=== PATIENT | female | born 1945 | race Caucasian/White ===

== ENCOUNTER 2021-09-27 16:40 | Inpatient (IN) | payer OTHER, MEDICAID ==
[~2021-09-27] VITALS: Ht 160 cm; Wt 75.7 kg
[2021-09-27 16:50] VITALS: BP_SYST 140
--- NOTE | 2021-09-27 16:55 | NUR ---
Patient to ER bed 3 to gown for evaluation. Side rails up. Report given to ANIA JOHNSON.
--- NOTE | 2021-09-27 17:12 | NUR ---
PT STATED HER CAR IS AT [facility] [place] [facility] [place] @ [address] [facility], [address] [place] [address] @ [phone]
--- NOTE | 2021-09-27 17:13 | NUR ---
ER AT BEDSIDE
--- NOTE | 2021-09-27 17:45 | NUR ---
PT AMBULATED TO RESTROOM WITH STEADY GAIT
[2021-09-27 17:58] LABS: ANION GAP 7 (5-15); CALCIUM 9.2 mg/dL (8.4-11.0); CHLORIDE 104 mmol/L (98-107); CREATININE 0.98 mg/dL (0.55-1.30); GLUCOSE 106 mg/dL (70-99); POTASSIUM 3.8 mmol/L (3.5-5.1); SODIUM SERUM 139 mmol/L (136-145); UREA NITROGEN, BLOOD 19 mg/dL (8-21)
[2021-09-27 18:06] LABS: ALANINE AMINOTRANSFERASE 17 U/L (12-78); ASPARTATE AMINOTRANSFERASE 27 U/L (10-37); TOTAL BILIRUBIN 0.4 mg/dL (0.0-1.0)
--- NOTE | 2021-09-27 18:21 | NUR ---
COVID SENT AT THIS TIME
[2021-09-27 18:53] LABS: BASOPHILS # (AUTO) 0.1 K/uL (0.0-0.2); BASOPHILS % (AUTO) 1.1 % (0.0-2.0); EOSINOPHILS # (AUTO) 0.2 K/uL (0.0-0.4); EOSINOPHILS % (AUTO) 1.8 % (0.0-4.0); HEMATOCRIT 39.2 % (36-48); HEMOGLOBIN 12.6 g/dL (12.0-16.0); LYMPHOCYTES # (AUTO) 1.4 K/uL (1.0-5.5); LYMPHOCYTES % (AUTO) 16.4 % (20.5-51.5); MEAN CORPUSCULAR HEMOGLOBIN 27 pg (27-31); MEAN CORPUSCULAR HGB CONC 32 % (32-36); MEAN CORPUSCULAR VOLUME 83 fL (79.0-98.0); MONOCYTES # (AUTO) 0.6 K/uL (0.0-1.0); MONOCYTES % (AUTO) 6.9 % (1.7-9.3); NEUTROPHILS # (AUTO) 6.2 K/uL (1.8-7.7); NEUTROPHILS % (AUTO) 73.8 % (40.0-70.0); PLATELET COUNT (AUTO) 188 K/uL (130-430); RED BLOOD CELL COUNT(AUTO) 4.75 MIL/uL (4.2-6.2); WHITE BLOOD COUNT (AUTO) 8.4 K/uL (4.8-10.8)
[2021-09-27] MEDS ORDERED: iohexoL 350 mgI/mL, 100 ML INFUS..BTL IV ONE (18:54)
--- NOTE | 2021-09-27 19:00 | NUR ---
PT OFF TO CT AT THIS TIME
[2021-09-27] MEDS ORDERED: ASPIRIN 325 MG TABLET (ECOTRIN) PO ONE ×2 (20:30→22:20)
[2021-09-27] MEDS ORDERED: ENOXAPARIN SODIUM 80 MG/0.8 ML SYRINGE SUBCUT ONE (20:30)
[2021-09-27] MEDS ORDERED: NITROGLYCERIN 1 INCH (GM) OINT. TP ONE (20:30)
--- NOTE | 2021-09-27 21:01 | NUR ---
Notified Dr. Box of patient's trending o2 sats on Room Air and while on 4 liters nasal cannula. Also checked 3 different fingers with o2 sat oximeter probe and also changed out the actual line to make sure erroneous results are not being displayed. Patient denies feeling sob, denies chest pain, denies dizziness. Asymptomatic. No visible signs of respiratory distress. No new orders received from ER physician.
[2021-09-27] MEDS ORDERED: FUROSEMIDE 40 MG/4 ML VIAL IVP ONE (21:15)
--- NOTE | 2021-09-27 21:39 | NUR ---
Spoke with Admitting physician Jose. Notified him of patient's o2 sat trends. Instructed to admit patient to icu instead of telemetry. supervisor pipelines Clover' and charge nurse of ER notified. Awaiting icu room. RT paged at this time for ABG and evaluation.
--- NOTE | 2021-09-27 21:48 | NUR ---
Admit bed requested Patient will be admitted to care of [TERRELL]. Admitted to [ICU] unit. Diagnosis [ELEVATED TROPONIN] Inpatient (Yes or No) [YES] Observation (Yes or No) [NO] Orientation concerns or request close to nursing station (Yes or No) [NO] Covid Status [NEG] On vent or bipap [NO] Isolation requirements [NO] Needs a sitter [NO] From Home (Yes or if No enter name of facility) [YES] Requires Dialysis (Yes or No) [NO] Med Rec Completed (Yes of No) [NO]
--- NOTE | 2021-09-27 22:20 | NUR ---
Telephone report given at this time to ELIZABETH Murray. Instructed to hold off on bringing patient to icu for at least 15 to 20 minutes.
--- NOTE | 2021-09-27 22:40 | NUR ---
Patient will be admitted to care of Dr. Garcia . Admitted to ICU unit. Will go to room ICU bed 5 . Belongings list completed. Complete and up to date summary report printed. SBAR report given at bedside with opportunity for questions.
--- NOTE | 2021-09-27 22:45 | NUR ---
RECEIVED PATIENT FROM ER, NANCY RN GAVE ME REPORT OVER THE PHONE. PATIENT IS A&O X4, ON 15 L VENTRI MASK WITH STATS AT 98%. PATIENT HAS A L AC 20 G WITH NOTHING RUNNING AT THIS TIME. PATIENT HAS A RIGHT LEG WOUND FROM A PAST DVT. HX WAS SHE WENT TO HER [facility] TODAY FOR A DEBRIDEMENT AND HER 02 STATS WHERE IN THE 80%. PATIENT STATS NO PAIN, SOB, CHEST PAIN, OR ANXIETY. PATIENT IS ON A CARDIAC DIET AND IS ABLE TO EAT AND DRINK HERSELF. INITIAL VITALS TO ICU WERE BP 134/83, TEMP 97.6, O2 98%, RESP 32. BED AT THE LOWEST LEVEL, BRAKES ARE LOCKED, 2 SIDE RAILS UP, AND CALL LIGHT WITHIN REACH.
[2021-09-27 23:00] VITALS: BP_SYST 134
[2021-09-27 23:01] VITALS: BP_SYST 134
[2021-09-27] MEDS ORDERED: cefTRIAXone 1 GM VIAL ONE (23:02)
[2021-09-27] MEDS ORDERED: AZITHROMYCIN 500 MG/VIAL (ZITHROMAX) IV ONE (23:03)
[2021-09-27] MEDS: cefTRIAXone 1 GM IVPB PREMIX 50 ML IV SCH ×3 (23:36→23:58)
--- NOTE | 2021-09-27 23:55 | NUR ---
LAB CALLED WITH A CRITICAL LAB OF TROPONIN 95. SAWYER TOOK CALL.
[2021-09-28] VITALS (24 sets, daily range): BP systolic 115–162
--- NOTE | 2021-09-28 00:07 | NUR ---
CALL DR TEJADA TO INFORMED OF CRITICAL LAB
--- NOTE | 2021-09-28 00:15 | NUR ---
DR TEJADA CALLED AND WAS MADE AWARE OF CRITICAL LAB. NO NEW ORDERS WERE GIVEN.
[2021-09-28] MEDS: AZITHROMYCIN 500 MG in NS 250 ML IV SCH ×2 (00:46→21:13)
--- NOTE | 2021-09-28 02:25 | NUR ---
DR VÍCTOR Box called stating pt was having mild carbon monoxide symptoms, and wanted pt on 100% FiO2. Pt placed on NRB 100%%. Order placed by Dr Box.
[2021-09-28 06:14] LABS: BASOPHILS # (AUTO) 0.1 K/uL (0.0-0.2); BASOPHILS % (AUTO) 0.7 % (0.0-2.0); EOSINOPHILS # (AUTO) 0.2 K/uL (0.0-0.4); EOSINOPHILS % (AUTO) 2.1 % (0.0-4.0); HEMATOCRIT 37.1 % (36-48); HEMOGLOBIN 12.3 g/dL (12.0-16.0); LYMPHOCYTES # (AUTO) 1.6 K/uL (1.0-5.5); LYMPHOCYTES % (AUTO) 17.7 % (20.5-51.5); MEAN CORPUSCULAR HEMOGLOBIN 27 pg (27-31); MEAN CORPUSCULAR HGB CONC 33 % (32-36); MEAN CORPUSCULAR VOLUME 82 fL (79.0-98.0); MONOCYTES # (AUTO) 0.8 K/uL (0.0-1.0); MONOCYTES % (AUTO) 8.2 % (1.7-9.3); NEUTROPHILS # (AUTO) 6.6 K/uL (1.8-7.7); NEUTROPHILS % (AUTO) 71.3 % (40.0-70.0); PLATELET COUNT (AUTO) 180 K/uL (130-430); RED BLOOD CELL COUNT(AUTO) 4.55 MIL/uL (4.2-6.2); RED CELL DISTRIBUTION WIDTH 14.3 % (9.0-15.0); WHITE BLOOD COUNT (AUTO) 9.3 K/uL (4.8-10.8)
[2021-09-28 07:16] LABS: ANION GAP 8 (5-15); CALCIUM 8.5 mg/dL (8.4-11.0); CHLORIDE 104 mmol/L (98-107); CREATININE 0.98 mg/dL (0.55-1.30); GLUCOSE 107 mg/dL (70-99); POTASSIUM 3.5 mmol/L (3.5-5.1); SODIUM SERUM 139 mmol/L (136-145); UREA NITROGEN, BLOOD 14 mg/dL (8-21)
[2021-09-28 07:17] LABS: ALANINE AMINOTRANSFERASE 7 U/L (12-78); ALBUMIN 2.6 g/dL (3.4-4.8); ASPARTATE AMINOTRANSFERASE 25 U/L (10-37); TOTAL BILIRUBIN 0.4 mg/dL (0.0-1.0)
--- NOTE | 2021-09-28 08:34 | NUR ---
RT NOTES Titrated O2 to 6L oxymizer. Pt. is alert, re-educated on deep- breathing exercise.
--- NOTE | 2021-09-28 11:01 | NUR ---
NOTIFIED OF CONSULT ORDERING PHY: REASON FOR CONSULT: ELEVATED TROP DIALED: [phone] SPOKE TO: JANE
--- NOTE | 2021-09-28 11:16 | NUR ---
NOTIFIED OF CONSULT ORDERING PHY: REASON FOR CONSULT: SOB DIALED: [phone] SPOKE TO: ABILIO
[2021-09-28] MEDS: DEXAMETHASONE SOD PHOSPHATE 10 MG/ML VIAL IVP SCH (13:41)
[2021-09-28] MEDS: EXCEDRIN EXTRA STRENGTH PO PRN (15:28)
--- NOTE | 2021-09-28 17:52 | NUR ---
JOHNSON CATH: # 16 FR Johnson catheter with 10 cc bulb inserted with use of sterile technique. Bulb inflated with 10 cc sterile water. Immediate return of YELLOW urine noted. Bedside drainage bag placed below level of bladder. Pt tolerated procedure.
--- NOTE | 2021-09-28 19:10 | NUR ---
OPENING NOTES: RECEIVED BEDSIDE REPORT FROM ADOLFO. PATIENT IS A&O X4 BUT HAS PERIODS OF CONFUSION. JOHNSON CATHETER WAS INSERTED TODAY. PATIENT IS ON A NON REBREATHER MASK AT 12L AND STATING AT 9%. PATIENT HAS A NITRO PATCH ON LEFT CLAVICLE AREA. ON A 2G SODIUM DIET, ABLE TO EAT AND DRINK ON HER OWN. RIGHT LOWER LEG WOUND FROM PAST DVT SURGERY. LEFT AC WITH NO FLUIDS RUNNING. BED AT THE LOWEST LEVEL, BRAKES ARE LOCKED, SUCTION IS WORKING, 3 SIDE RAILS UP, AND CALL LIGHT WITHIN REACH.
[2021-09-28] MEDS: cefTRIAXone 1 GM IVPB PREMIX 50 ML IV SCH (20:07)
[2021-09-29] VITALS (24 sets, daily range): BP systolic 108–161
[2021-09-29 02:25] LABS: BILIRUBIN,URINE NEGATIVE (NEGATIVE); BLOOD, URINE 3+ (NEGATIVE); CLARITY/URINE CLEAR (CLEAR); COLOR,URINE YELLOW (YELLOW); GLUCOSE,URINE NEGATIVE (NEGATIVE); KETONES,URINE NEGATIVE (NEGATIVE); LEUKOCYTE ESTERASE ,URINE NEGATIVE (NEGATIVE); NITRITE, URINE NEGATIVE (NEGATIVE); PROTEIN URINE 2+ (NEGATIVE); UROBILINOGEN,URINE 0.2 (0.2-1.0)
[2021-09-29 03:41] LABS: RBC,URINE 20-50 /HPF (0-3)
[2021-09-29 03:42] LABS: BACTERIA,URINE None Seen /HPF (None Seen); MUCUS,URINE None Seen /LPF (None Seen); WBC,URINE 0-3 /HPF (0-3)
[2021-09-29 06:40] LABS: ANION GAP 7 (5-15); CALCIUM 8.6 mg/dL (8.4-11.0); CHLORIDE 103 mmol/L (98-107); CREATININE 0.87 mg/dL (0.55-1.30); GLUCOSE 123 mg/dL (70-99); SODIUM SERUM 137 mmol/L (136-145); UREA NITROGEN, BLOOD 17 mg/dL (8-21)
[2021-09-29 06:44] LABS: HEMATOCRIT 36.6 % (36-48); HEMOGLOBIN 11.9 g/dL (12.0-16.0); LYMPHOCYTES # (AUTO) 1.1 K/uL (1.0-5.5); LYMPHOCYTES % (AUTO) 12.1 % (20.5-51.5); MEAN CORPUSCULAR HEMOGLOBIN 27 pg (27-31); MEAN CORPUSCULAR HGB CONC 33 % (32-36); MEAN CORPUSCULAR VOLUME 83 fL (79.0-98.0); MONOCYTES # (AUTO) 0.6 K/uL (0.0-1.0); MONOCYTES % (AUTO) 6.1 % (1.7-9.3); NEUTROPHILS # (AUTO) 7.7 K/uL (1.8-7.7); NEUTROPHILS % (AUTO) 81.8 % (40.0-70.0); PLATELET COUNT (AUTO) 182 K/uL (130-430); RED BLOOD CELL COUNT(AUTO) 4.44 MIL/uL (4.2-6.2); RED CELL DISTRIBUTION WIDTH 14.5 % (9.0-15.0); WHITE BLOOD COUNT (AUTO) 9.4 K/uL (4.8-10.8)
[2021-09-29] MEDS: ENOXAPARIN SODIUM 40 MG/0.4 ML SYRINGE SUBCUT SCH (08:31)
[2021-09-29] MEDS: FUROSEMIDE 40 MG/4 ML VIAL IVP SCH (08:31)
[2021-09-29] MEDS: CLOPIDOGREL BISULFATE 75 MG TABLET PO SCH (08:31)
--- NOTE | 2021-09-29 10:55 | NUR ---
RT NOTES Set up HFNC per Dr Kaur's order, 30L 60%. Pt is about to go to CT. ELIZABETH Linda is to place pt on HFNC once back from CT.
[2021-09-29] MEDS: DEXAMETHASONE SOD PHOSPHATE 10 MG/ML VIAL IVP SCH (12:39)
[2021-09-29] MEDS ORDERED: methylPREDNISolone SOD SUCC/PF 62.5 MG/ML VIAL IVP ONE (16:00)
--- NOTE | 2021-09-29 19:05 | NUR ---
OPENING NOTES: RECEIVED BEDSIDE REPORT FROM SUSAN. PATIENT IS A&O X4 AND IS VERY UPSET. PATIENT IS ON HIGH FLOW AT 30L AND 60% STATING AT 99%. PATIENT HR IS 97. PATIENT HAS A LEFT AC 20G THAT IS SALINE LOCKED. SUSAN STATED SHE CALLED FOR SOME ANTACIDS AND HAS NOT RECEIVED A CALL BACK. PATIENT IS ON A 2G SODIUM DIET, IS ABLE TO EAT AND DRINK ON HER OWN. BED IS AT THE LOWEST LEVEL, BRAKES ARE LOCKED, SUCTION IS WORKING, AND CALL LIGHT IS WITHIN REACH. EDUCATED THE PATIENT NOT TO GET UP AND TO USE THE CALL LIGHT IF SHE NEEDS ANYTHING.
--- NOTE | 2021-09-29 19:59 | NUR ---
CALLED TO PAGE DR TONG. PATIENT HR IS 165 FOR THE PAST 30 MINUTES.
[2021-09-29] MEDS: cefTRIAXone 1 GM IVPB PREMIX 50 ML IV SCH (20:37)
[2021-09-29] MEDS: methylPREDNISolone SOD SUCC/PF 62.5 MG/ML VIAL IVP SCH (20:38)
--- NOTE | 2021-09-29 21:11 | NUR ---
REPAGED DR TONG FOR INCREASED HR. HR DID DECREASE FOR 1 HOUR, DID NOT RECEIVE A CALL BACK FOR FIRST CALL.
[2021-09-29] MEDS: AZITHROMYCIN 500 MG in NS 250 ML IV SCH (21:26)
--- NOTE | 2021-09-29 21:41 | NUR ---
REPAGED DR TONG AGAIN FOR ORDERS. PATIENT HR IS 169.
--- NOTE | 2021-09-29 22:35 | NUR ---
DR RAN Cohen notified regarding pt's rhythm of rapid AFib. Orders received.
[2021-09-29] MEDS ORDERED: AMIODARONE HCL 200 MG TABLET PO ONE (23:00)
[2021-09-30] VITALS (20 sets, daily range): BP systolic 105–148
--- NOTE | 2021-09-30 04:30 | NUR ---
CALLED DR TONG FOR ORDERS IN REGARDS TO INCREASED HR. GAVE ORDERS OF ONCE LOPRESSOR 5 MG IVP AND NS 75 CC/HR.
[2021-09-30] MEDS ORDERED: METOPROLOL TARTRATE 5 MG/5 ML AMPUL IVP ONE (04:45)
--- NOTE | 2021-09-30 04:45 | NUR ---
HIGH ALERT NOTE: Called Dr. Cohen back at 0445 identified within the medical roster to verify physician authenticity.
[2021-09-30] MEDS: NACL 0.9% 1,000 ML IV SCH ×2 (04:48→21:07)
[2021-09-30 06:14] LABS: BASOPHILS % (AUTO) 0.2 % (0.0-2.0); HEMATOCRIT 37.1 % (36-48); HEMOGLOBIN 12.1 g/dL (12.0-16.0); LYMPHOCYTES # (AUTO) 0.8 K/uL (1.0-5.5); LYMPHOCYTES % (AUTO) 7.7 % (20.5-51.5); MEAN CORPUSCULAR HEMOGLOBIN 27 pg (27-31); MEAN CORPUSCULAR HGB CONC 33 % (32-36); MEAN CORPUSCULAR VOLUME 82 fL (79.0-98.0); MONOCYTES # (AUTO) 0.1 K/uL (0.0-1.0); NEUTROPHILS # (AUTO) 9.7 K/uL (1.8-7.7); NEUTROPHILS % (AUTO) 91.1 % (40.0-70.0); PLATELET COUNT (AUTO) 228 K/uL (130-430); RED BLOOD CELL COUNT(AUTO) 4.52 MIL/uL (4.2-6.2); RED CELL DISTRIBUTION WIDTH 14.5 % (9.0-15.0); WHITE BLOOD COUNT (AUTO) 10.6 K/uL (4.8-10.8)
[2021-09-30 06:39] LABS: ALANINE AMINOTRANSFERASE 7 U/L (12-78); ALBUMIN 2.5 g/dL (3.4-4.8); ANION GAP 10 (5-15); ASPARTATE AMINOTRANSFERASE 14 U/L (10-37); CHLORIDE 102 mmol/L (98-107); CREATININE 1.06 mg/dL (0.55-1.30); GLUCOSE 211 mg/dL (70-99); POTASSIUM 4.4 mmol/L (3.5-5.1); SODIUM SERUM 137 mmol/L (136-145); THYROID STIMULATING HORMONE 0.54 uIu/mL (0.36-3.74); TOTAL BILIRUBIN 0.4 mg/dL (0.0-1.0); UREA NITROGEN, BLOOD 23 mg/dL (8-21)
--- NOTE | 2021-09-30 07:30 | NUR ---
PATIENT IN BED, A/OX4, ANXIOUS, REINFORCED EDUCATION ON PLAN OF CARE AND CURRENT DIAGNOSIS, HIGH FLOW 30L 60%, ELEVATED HR WITH AFIB, WILL NOTIFY DR TONG UPON ROUNDING, JOHNSON CATHETER DRAINING LOREN URINE TO GRAVITY, MOVES ALL EXTREMITIES, NO BM DURING THE NIGHT, CT CHEST PERFORMED YESTERDAY SHOWING GROUND GLASS, 3 COVID TESTS PERFORMED AND ALL NEGATIVE, 2GM NA+ DIET, CALL LIGHT WITHIN REACH, LEFT AC 20G INTACT PATENT, BED IN LOWEST LOCKED POSITION, SAFETY MEASURES IN PLACE, WILL CONTINUE TO MONITOR.
[2021-09-30 08:43] LABS: CHOLESTEROL 162 mg/dL (<200); HDL CHOLESTEROL 46 mg/dL (>55); LDL CHOLESTEROL 105 mg/dL (<100); TRIGLYCERIDES 57 mg/dL (30-150)
[2021-09-30] MEDS: PANTOPRAZOLE SODIUM 40 MG TAB PO SCH (09:59)
[2021-09-30] MEDS: AMIODARONE HCL 200 MG TABLET PO SCH ×2 (10:00→22:21)
[2021-09-30] MEDS: CLOPIDOGREL BISULFATE 75 MG TABLET PO SCH (10:00)
[2021-09-30] MEDS: LOSARTAN POTASSIUM 50 MG TABLET (COZAAR) PO SCH (10:00)
[2021-09-30] MEDS: FUROSEMIDE 40 MG/4 ML VIAL IVP SCH (10:01)
[2021-09-30] MEDS: methylPREDNISolone SOD SUCC/PF 62.5 MG/ML VIAL IVP SCH ×2 (10:01→22:10)
[2021-09-30] MEDS: ENOXAPARIN SODIUM 40 MG/0.4 ML SYRINGE SUBCUT SCH (10:02)
--- NOTE | 2021-09-30 10:40 | NUR ---
SPOKE WITH DR YI AND DR FRAGA AT NURSES STATION ORDERED TO DOWNGRADE TO TELE SINCE PATIENT IS NOW ON HIGHFLOW 25L FIO2 30% AND PATIENT IS STABLE FOR DOWNGRADE.
[2021-09-30] MEDS: DEXAMETHASONE SOD PHOSPHATE 10 MG/ML VIAL IVP SCH (12:20)
[2021-09-30] MEDS: EXCEDRIN EXTRA STRENGTH PO PRN (14:25)
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
--- NOTE | 2021-09-30 15:06 | NUR ---
ST EVALUATION COMPLETED. ST TX NOT INDICATED AT THIS TIME. RECOMMEND CONTINUE CURRENT PO DIET. MODIFIED BARIUM SWALLOW NOT INDICATED AT THIS TIME. MAY BENEFIT FROM GI CONSULT DUE TO COMPLAINTS OF REFLUX.
--- NOTE | 2021-09-30 15:30 | NUR ---
COLOR REPAIRER LAURIE Garcia received a call from [facility] Hay Baler Jovita requesting support with obtaining patient's correct address and emergency contact. HEALTH CARE FACILITY ADMINISTRATOR obtained the following address from patient and provided it to Jovita- [address] [place] [address] LAURIE also informed Jovita that patient has provided permission for friend Emperatriz Eran to be utilized as emergency contact, but only to be contacted with patient's permission and only in the event of an emergency.
--- NOTE | 2021-09-30 16:20 | NUR ---
PATIENT TRANSFERRED TO TELEMETRY BED 126B, ON 2L NASAL CANULA, O2 SAT 96%, A/OX4, NO S/S OF DISTRESS, ALL BELONGINGS TRANSFERRED WITH PATIENT, PATIENT TOLERATED WELL. FULL REPORT GIVE TO NURSE SASHA, ENDORSED CONTINUATION OF CARE.
--- NOTE | 2021-09-30 16:21 | NUR ---
ADMISSION NOTE Received patient from ICU via hospitalbed. Patient admitted with diagnosis of elevated troponin. Patient is awake, alert, oriented X 4. Patient oriented to hospital room, call light, toileting, pain management and safety-teach back done. Patient currently on 2L NC,oxygen saturation 96%. Call light within reach and safety checks made. All needs met at this time.
--- NOTE | 2021-09-30 16:29 | NUR ---
1611 placed pt on 2l oxymizer for transport to [facility]. pt sat 96%, tolerating well. will cont to monitor. rn aware. Addendum: 09/30/21 at 1634 by Paula Singleton RT Amended: Links added.
--- NOTE | 2021-09-30 19:30 | NUR ---
OPENING Notes: Patient received from AM shift. Patient is AA&Ox4 able to make needs known with call light within reach. Patient was transferred today from the ICU where she was treated for PNA and is now on 2L via NC and is tolerating it well. Patient ambulates with a walker at baseline but has not ambulated since admission and is pending PT eval. Safety measures are currently in place. Will resume care and continue to monitor throughout the shift.
--- NOTE | 2021-09-30 19:33 | NUR ---
CLOSING NOTE Patient resting in bed, alert and oriented x4. No sign of distress and patient denies pain. Patient updated on her plan of care and is oriented to her new room. Patient is on 2L NC, breathing is even and nonlabored. All needs met at this time and safety checks made. Endorsed to overnight associate nurse.
[2021-09-30] MEDS: cefTRIAXone 1 GM IVPB PREMIX 50 ML IV SCH (21:14)
[2021-09-30] MEDS: AZITHROMYCIN 500 MG in NS 250 ML IV SCH (22:12)
[2021-10-01] VITALS: BP_SYST 122
--- NOTE | 2021-10-01 02:00 | NUR ---
Patient PIV dislodged new one was placed on Right hand 20G, patient tolerated well and new IV is patent and is currently infusing NS at 75 ml/hr as ordered. Patient is now resting will continue to monitor throughout the shift.
[2021-10-01 06:37] LABS: BASOPHILS % (AUTO) 0.2 % (0.0-2.0); HEMATOCRIT 35.1 % (36-48); HEMOGLOBIN 11.4 g/dL (12.0-16.0); LYMPHOCYTES # (AUTO) 0.8 K/uL (1.0-5.5); LYMPHOCYTES % (AUTO) 5.1 % (20.5-51.5); MEAN CORPUSCULAR HEMOGLOBIN 27 pg (27-31); MEAN CORPUSCULAR HGB CONC 32 % (32-36); MEAN CORPUSCULAR VOLUME 82 fL (79.0-98.0); MONOCYTES # (AUTO) 0.2 K/uL (0.0-1.0); MONOCYTES % (AUTO) 1.6 % (1.7-9.3); NEUTROPHILS # (AUTO) 13.9 K/uL (1.8-7.7); NEUTROPHILS % (AUTO) 93.1 % (40.0-70.0); PLATELET COUNT (AUTO) 227 K/uL (130-430); RED CELL DISTRIBUTION WIDTH 14.4 % (9.0-15.0); WHITE BLOOD COUNT (AUTO) 14.9 K/uL (4.8-10.8)
[2021-10-01 07:09] LABS: ALANINE AMINOTRANSFERASE 5 U/L (12-78); ALBUMIN 2.4 g/dL (3.4-4.8); ANION GAP 7 (5-15); ASPARTATE AMINOTRANSFERASE 13 U/L (10-37); CALCIUM 8.5 mg/dL (8.4-11.0); CHLORIDE 102 mmol/L (98-107); CREATININE 0.93 mg/dL (0.55-1.30); GLUCOSE 166 mg/dL (70-99); SODIUM SERUM 137 mmol/L (136-145); TOTAL BILIRUBIN 0.2 mg/dL (0.0-1.0); UREA NITROGEN, BLOOD 28 mg/dL (8-21)
[2021-10-01 08:00] VITALS: BP_SYST 144
[2021-10-01] MEDS: LOSARTAN POTASSIUM 50 MG TABLET (COZAAR) PO SCH (09:04)
[2021-10-01] MEDS: methylPREDNISolone SOD SUCC/PF 62.5 MG/ML VIAL IVP SCH ×2 (09:05→21:52)
[2021-10-01] MEDS: CLOPIDOGREL BISULFATE 75 MG TABLET PO SCH (09:05)
[2021-10-01] MEDS: FUROSEMIDE 40 MG/4 ML VIAL IVP SCH (09:05)
[2021-10-01] MEDS: PANTOPRAZOLE SODIUM 40 MG TAB PO SCH (09:05)
[2021-10-01] MEDS: AMIODARONE HCL 200 MG TABLET PO SCH ×2 (09:05→21:52)
[2021-10-01] MEDS: ENOXAPARIN SODIUM 40 MG/0.4 ML SYRINGE SUBCUT SCH (09:06)
[2021-10-01 12:09] VITALS: BP_SYST 126
[2021-10-01] MEDS: DEXAMETHASONE SOD PHOSPHATE 10 MG/ML VIAL IVP SCH (12:37)
[2021-10-01] MEDS: EXCEDRIN EXTRA STRENGTH PO PRN (12:38)
[2021-10-01 16:10] VITALS: BP_SYST 116
--- NOTE | 2021-10-01 18:00 | NUR ---
miss Bey has been assessed as indicated. She continues to deny pain. She has a Adame in place and has tolerated this well. She has been disconnected from IVF most of the shift per her wishes. Drinks adequate amounts. She has ambulated with PT. She now has a walker at the bedside. She is resting quietly.Her room has been changed to [facility]
--- NOTE | 2021-10-01 19:39 | NUR ---
Handoff has been given to Clari
--- NOTE | 2021-10-01 20:00 | NUR ---
RECEIVED PT FROM DAY SHIFT, PT AOX4,NO ACUTE DISTRESS OR DISCOMFORT NOTED, BREATHING EVEN AND UNLABORED, IV SITE IS INTACT AND PATENT SALINE LOCK, 2L NC SATURATING WELL, JOHNSON CATH NOTED AND DRAINING TO GRAVITY FALL AND SAFETY PRECAUTIONS IN PLACE WITH BED IN LOWEST POSITION, BED ALARM ON, BSC ,AND CALL LIGHT WITHIN REACH, WILL CONTINUE TO MONITOR.
[2021-10-01 20:05] VITALS: BP_SYST 134
[2021-10-01] MEDS: AZITHROMYCIN 500 MG in NS 250 ML IV SCH (21:51)
[2021-10-01] MEDS: cefTRIAXone 1 GM IVPB PREMIX 50 ML IV SCH (21:51)
[2021-10-01] MEDS: NACL 0.9% 1,000 ML IV SCH (22:01)
--- NOTE | 2021-10-02 | NUR ---
NO CHANGES NOTED FROM PREVIOUS ASSESSMENT, WILL CONTINUE TO MONITOR.
[2021-10-02 01:43] VITALS: BP_SYST 124
--- NOTE | 2021-10-02 06:00 | NUR ---
PT C/O HEADACHE 08/28, MEDICATED PRN, WILL CONTINUE TO MONITOR.
[2021-10-02] MEDS: EXCEDRIN EXTRA STRENGTH PO PRN (06:01)
--- NOTE | 2021-10-02 07:33 | NUR ---
REPORT GIVEN TO NICOL MEJIA FOR CONTINUITY OF CARE ALL QUESTIONS WERE ANSWERED AND MOBILE ELECTRONICS INSTALLER VERBALIZED UNDERSTANDING.
[2021-10-02 08:00] VITALS: BP_SYST 142
[2021-10-02 09:01] VITALS: BP_SYST 124
[2021-10-02] MEDS: FUROSEMIDE 40 MG TABLET PO SCH (09:26)
[2021-10-02] MEDS: ENOXAPARIN SODIUM 40 MG/0.4 ML SYRINGE SUBCUT SCH (09:26)
[2021-10-02] MEDS: CLOPIDOGREL BISULFATE 75 MG TABLET PO SCH (09:26)
[2021-10-02] MEDS: AMIODARONE HCL 200 MG TABLET PO SCH ×2 (09:27→21:28)
[2021-10-02] MEDS: PANTOPRAZOLE SODIUM 40 MG TAB PO SCH (09:27)
[2021-10-02] MEDS: LOSARTAN POTASSIUM 50 MG TABLET (COZAAR) PO SCH (09:28)
--- NOTE | 2021-10-02 10:13 | NUR ---
PRODUCT SAFETY SPECIALIST LAURIE Garcia emailed admitting to update patient's address of [id number] [place] [id number]
--- NOTE | 2021-10-02 10:28 | NUR ---
WOUND EVALUATION: Late note for 10/02/2021 at 1028 secondary to patient care. Wound Consult received from Dr. Garcia. Thank you, Dr. Garcia, for the consult. Patient received in a [place] Bed with an IsoFlex ESTELLE mattress, awake, alert, oriented. Patient is able to turn in bed independently. Luis Fernando Score is a 20. Past Medical History: Chronic Non-Healing Leg Ulcer for last 5 years (diagnosed in 2018), patient had vascular bypass done, Peripheral Vascular Disease, Chronic Sinusitis, Polypectomy, Essential Hypertension, Colonoscopy, Polypectomy. Recent Labs: WBC 14.9, RBC 4.30, hemoglobin 11.4, hematocrit 35.1, glucose 166, albumin 2.4, D-dimer 781. Microbiology: MRSA screen results negative. Blood culture results negative. Intrinsic factors that delay wound healing: Peripheral Vascular Disease, hypoalbuminemia. Extrinsic factors that delay wound healing: Decreased mobility. Wound Assessment: 1. Right Distal Lateral Lower Extremity: Vascular ulcer, present on admission. Wound bed numbers sent dark discolored tissue, 90% dull red tissue. No odor, scant red drainage. Periwound intact. Surrounding tissue has dry scaly skin. Wound measures 3.0 cm x 3.0 cm. Recommend: Cleanse wound with normal saline. Apply moisture barrier cream to wilma-wound. Apply Venelex ointment to wound bed. Cover with nonadhesive foam dressing, wrap with Anahy wrap. Perform wound care daily, and as needed for dressing soiling or dislodgement. Also recommend: Encourage and assist patient as needed with repositioning every 2 hours with pillow support and off-load pressure areas with pillows for pressure re-distribution. Offload, elevate and float bilateral heels with pillows, elevate bilateral lower extremities as tolerated. Perform skin care and monitor skin integrity Q shift. Use moisture barrier cream on buttocks and other moisture susceptible areas QID and as needed for soiling. Maintain patient on a low air-loss mattress.
[2021-10-02] MEDS: DEXAMETHASONE SOD PHOSPHATE 10 MG/ML VIAL IVP SCH (11:15)
[2021-10-02] MEDS: NACL 0.9% 1,000 ML IV SCH (12:03)
[2021-10-02] MEDS: methylPREDNISolone SOD SUCC/PF 62.5 MG/ML VIAL IVP SCH (12:07)
[2021-10-02 12:30] VITALS: BP_SYST 131
[2021-10-02 13:06] LABS: ATYPICAL pANCA <1:20 titer (Neg:<1:20); CYTOPLASMIC (C-ANCA) <1:20 titer (Neg:<1:20); CYTOPLASMIC (P-ANCA) <1:20 titer (Neg:<1:20)
[2021-10-02 16:00] VITALS: BP_SYST 115
[2021-10-02] MEDS ORDERED: BALSAM PERU/CASTOR OIL 56.7 GM OINT...G. TP SCH (16:00)
[2021-10-02] MEDS ORDERED: BALSAM PERU/CASTOR OIL 56.7 GM OINT...G. TP ONE (16:00)
[2021-10-02 20:00] VITALS: BP_SYST 160
--- NOTE | 2021-10-02 20:00 | NUR ---
22G ON LEFT FOREARM.
--- NOTE | 2021-10-02 20:00 | NUR ---
RECEIVED PT FROM DAY SHIFT, PT AOX4,NO ACUTE DISTRESS OR DISCOMFORT NOTED, BREATHING EVEN AND UNLABORED, PT BOWEL SOUNDS PRESENT, ABLE TO AMBULATE AND ARTICULATE NEEDS. 2L NC SATURATING WELL, JOHNSON CATH NOTED AND DRAINING TO GRAVITY FALL AND SAFETY PRECAUTIONS IN PLACE. 22G PLACED ON LEFT FOREARM, OLD iv PULLED OUT BED LOCKED IN LOWEST POSITION, BED ALARM ON, BSC ,AND CALL LIGHT WITHIN REACH, WILL CONTINUE TO MONITOR
[2021-10-02] MEDS: METHYLPREDNISOLONE SOD SUCC 40 MG/ML VIAL IVP SCH (21:27)
[2021-10-02] MEDS: AZITHROMYCIN 500 MG in NS 250 ML IV SCH (21:27)
[2021-10-02] MEDS: cefTRIAXone 1 GM IVPB PREMIX 50 ML IV SCH (21:29)
[2021-10-03 00:43] VITALS: BP_SYST 141
[2021-10-03 08:00] VITALS: BP_SYST 159
[2021-10-03] MEDS: EXCEDRIN EXTRA STRENGTH PO PRN ×2 (08:28→17:41)
[2021-10-03] MEDS: METHYLPREDNISOLONE SOD SUCC 40 MG/ML VIAL IVP SCH ×2 (08:43→20:10)
[2021-10-03] MEDS: NACL 0.9% 1,000 ML IV SCH ×2 (08:43→12:45)
[2021-10-03] MEDS: AMIODARONE HCL 200 MG TABLET PO SCH ×2 (08:44→20:11)
[2021-10-03] MEDS: LOSARTAN POTASSIUM 50 MG TABLET (COZAAR) PO SCH (08:45)
[2021-10-03] MEDS: CLOPIDOGREL BISULFATE 75 MG TABLET PO SCH (08:45)
[2021-10-03] MEDS: FUROSEMIDE 40 MG TABLET PO SCH (08:45)
[2021-10-03] MEDS: PANTOPRAZOLE SODIUM 40 MG TAB PO SCH (08:45)
[2021-10-03] MEDS: ENOXAPARIN SODIUM 40 MG/0.4 ML SYRINGE SUBCUT SCH (08:46)
[2021-10-03] MEDS: BALSAM PERU/CASTOR OIL 56.7 GM OINT...G. TP SCH (09:00)
[2021-10-03 12:00] VITALS: BP_SYST 157
--- NOTE | 2021-10-03 12:00 | NUR ---
Dr Garcia at the bedside and ordered possible discharge tomorrow and pt agreed. Left leg ulcer wound drsg cleansed and venelex ointment applied and kerlix applied. pt tolerated wound drsg change well. Will continue to monitor pt closely.
[2021-10-03 16:00] VITALS: BP_SYST 155
--- NOTE | 2021-10-03 17:08 | NUR ---
Dietitian Recommendations * Continue 2 gm [address]ty GARC[address]A RD Please refer to Nutrition Assessment for details. Addendum: 10/03/21 at [address] Amended: Links added.
[2021-10-03] MEDS: cefTRIAXone 1 GM IVPB PREMIX 50 ML IV SCH (20:11)
[2021-10-04 01:06] VITALS: BP_SYST 155
[2021-10-04] MEDS: NACL 0.9% 1,000 ML IV SCH ×2 (02:05→15:25)
--- NOTE | 2021-10-04 06:28 | NUR ---
NOTIFIED ELIZABETH LABOY THAT PT IS COMPLAINING OF SEVERE HEADACHE AND WANTED COUPLE OF EXCEDRIN.
[2021-10-04] MEDS: EXCEDRIN EXTRA STRENGTH PO PRN (06:32)
[2021-10-04] MEDS: LOSARTAN POTASSIUM 50 MG TABLET (COZAAR) PO SCH (08:24)
[2021-10-04] MEDS: AMIODARONE HCL 200 MG TABLET PO SCH ×2 (08:24→21:05)
[2021-10-04] MEDS: CLOPIDOGREL BISULFATE 75 MG TABLET PO SCH (08:24)
[2021-10-04] MEDS: ENOXAPARIN SODIUM 40 MG/0.4 ML SYRINGE SUBCUT SCH ×2 (08:25→08:27)
[2021-10-04] MEDS: PANTOPRAZOLE SODIUM 40 MG TAB PO SCH (08:25)
[2021-10-04] MEDS: FUROSEMIDE 40 MG TABLET PO SCH (08:25)
[2021-10-04] MEDS: METHYLPREDNISOLONE SOD SUCC 40 MG/ML VIAL IVP SCH ×2 (08:26→21:05)
[2021-10-04] MEDS: BALSAM PERU/CASTOR OIL 56.7 GM OINT...G. TP SCH (08:28)
--- NOTE | 2021-10-04 11:46 | NUR ---
PT UP AMBULATING IN ROOM. NOTED O2 SAT DECREASED TO 85% WHILE AMBULATING IN ROOM. PT ASSISTED BACK TO BED AND ENCOURAGED TO RELAX. PT TEACHING DONE ON FREQUENT REST PERIODS WITH ACTIVITY. CALL PLACED TO MD TO NOTIFY HIM OF PT'SO2 SAT WITH ACTIVITY.
[2021-10-04 12:54] VITALS: BP_SYST 150
--- NOTE | 2021-10-04 15:15 | NUR ---
Discharge appointments and vendors arranged by [facility] Offset Assistant Press Operator. Dr. Coronado Primary Care [facility] will call with date and time Cardiology follow up with established provider/PPL provider [facility] will call with date and time Home PT & wound care Agency will call and schedule visit. Please call Patient Support Center [phone] for worsening symptoms or trouble getting your medicine. For care needs when provider office is closed, contact Fransisco [facility] at [phone] or Jesscia [facility] [place] [phone].
[2021-10-04 16:11] VITALS: BP_SYST 149
[2021-10-04 16:30] VITALS: BP_SYST 147
--- NOTE | 2021-10-04 17:30 | NUR ---
I SPOKE WITH MD AND INFORMED HIM THAT PT'S O2 SAT DECREASED WITH ACTIVITY. PT ALSO WAS TO DRIVE HERSELF HOME. HE SAID IT WAS OKAY TO D/C JOHNSON CATH. HE STATED THAT HE WOULD REVIEW PT'S CHART REGARDING PT'S DISCHARGE. VSS. I INFORMED PT ON THE CONVERSATION I HAD WITH THE PHYSICIAN.
--- NOTE | 2021-10-04 19:30 | NUR ---
I GAVE REPORT TO ELIZABETH WILLINGHAM FOR CONTINUUM OF CARE.
[2021-10-04 20:52] VITALS: BP_SYST 130
--- NOTE | 2021-10-04 21:00 | NUR ---
PT ABLE TO URINATE IN BEDSIDE COMMODE POST JOHNSON REMOVAL. PT EDUCATED TO USE CALL LIGHT WHEN SHE NEEDS ASSISTANCE. PT O2 AT 89-90% NASAL CANNULA PLACED BACK ON AT 4L. PT EDUCATED TO KEEP OXYGEN ON.
[2021-10-04] MEDS: cefTRIAXone 1 GM IVPB PREMIX 50 ML IV SCH (21:05)
[2021-10-04] MEDS ORDERED: IBUPROFEN 600 MG TABLET PO PRN (22:15)
[2021-10-05] VITALS (7 sets, daily range): BP systolic 129–147
[2021-10-05] MEDS: NACL 0.9% 1,000 ML IV SCH ×2 (04:45→18:05)
--- NOTE | 2021-10-05 07:31 | NUR ---
pt refused any wound care to wound on r leg. dressing intact. day rn made aware
--- NOTE | 2021-10-05 08:00 | NUR ---
am assessment pt stable notin aCUTE DISTRESS. RES EVEN AND UNLABORED. VITALS STABLE. SAFETY AND FALL PRECAUTIONS IN PLACE. DENIES ANY SOB . O2 SATURATION 95% on 2 l.. not in acute distress.
[2021-10-05] MEDS: EXCEDRIN EXTRA STRENGTH PO PRN ×2 (08:15→21:01)
[2021-10-05] MEDS: METHYLPREDNISOLONE SOD SUCC 40 MG/ML VIAL IVP SCH ×2 (09:10→21:02)
[2021-10-05] MEDS: LOSARTAN POTASSIUM 50 MG TABLET (COZAAR) PO SCH (09:13)
[2021-10-05] MEDS: ENOXAPARIN SODIUM 40 MG/0.4 ML SYRINGE SUBCUT SCH (09:13)
[2021-10-05] MEDS: PANTOPRAZOLE SODIUM 40 MG TAB PO SCH (09:13)
[2021-10-05] MEDS: CLOPIDOGREL BISULFATE 75 MG TABLET PO SCH (09:13)
[2021-10-05] MEDS: FUROSEMIDE 40 MG TABLET PO SCH (09:13)
[2021-10-05] MEDS: AMIODARONE HCL 200 MG TABLET PO SCH ×2 (09:28→21:03)
[2021-10-05] MEDS ORDERED: CLOP75TA32 PO (09:43)
[2021-10-05] MEDS ORDERED: BUDE6HFA INH (09:43)
[2021-10-05] MEDS ORDERED: FURO-149 PO (09:43)
[2021-10-05] MEDS ORDERED: ZIT250 PO (09:43)
[2021-10-05] MEDS ORDERED: DEXA6TAB5 PO (09:43)
[2021-10-05] MEDS ORDERED: FAMO20TA8 PO (09:43)
[2021-10-05] MEDS ORDERED: ALBMDI INH (09:43)
[2021-10-05] MEDS ORDERED: LOSA50TA3 PO (09:43)
--- NOTE | 2021-10-05 10:00 | NUR ---
md visit pt stable denies any pain or sob. o2 saturation 95% on ra. dr latif seen pt. new order received
--- NOTE | 2021-10-05 11:38 | NUR ---
pt was walking in hallway with walker steady gait. o2 saturation dropped to 66%-77% pt c/o of mild sob.pt placed on wheel chair. back to room oxygen 2 l via nasal canula placed . o2 saturation increased to 94%. pt resting comfortably.denies sob at this time. called dr latif and notified . new order received
--- NOTE | 2021-10-05 12:23 | NUR ---
INFORMED ELIZABETH SAPP THAT THE PATIENT IS OFF THE TELE MONITOR
[2021-10-05] MEDS: BALSAM PERU/CASTOR OIL 56.7 GM OINT...G. TP SCH (16:00)
--- NOTE | 2021-10-05 18:09 | NUR ---
PHYSICAL THERAPY CO-SIGN The Physical Therapy Progress Notes documented by Marketing Operations Assistant have been reviewed. Reviewed/Co-Signed by: Flaquito Madrid Documentation Done by: JESUS DAVIS PTA Addendum: 10/05/21 at 1809 by Flaquito Madrid PT Amended: Links added.
--- NOTE | 2021-10-05 19:00 | NUR ---
CLOSING NOTES PT STABLE NOT IN ACUTE DISTRESS CUTE DISTRESS. RES EVEN AND UNLABORED. VITALS STABLE. SAFETY AND FALL PRECAUTIONS IN PLACE. DENIES ANY SOB . O2 SATURATION 94% on 2 l.OXYGEN . SAFETY AND FALL PRECAUTIONS IN PLACE..NEEDS ATTENDED
--- NOTE | 2021-10-05 20:00 | NUR ---
am assessment pt stable notin aCUTE DISTRESS. RES EVEN AND UNLABORED. VITALS STABLE. SAFETY AND FALL PRECAUTIONS IN PLACE. DENIES ANY SOB . O2 SATURATION 95% on 2l. AWAITING HOME HEALTH DELIVERY FOR O2 TO PT BEFORE DC. PT DOES REQUEST PNUMOCOCCAL VACCINATION.
[2021-10-05] MEDS: cefTRIAXone 1 GM IVPB PREMIX 50 ML IV SCH (21:01)
--- NOTE | 2021-10-06 | NUR ---
PT REFUSES WOUND CARE
[2021-10-06 01:20] VITALS: BP_SYST 158
[2021-10-06 06:34] LABS: HEMATOCRIT 36.3 % (36-48); HEMOGLOBIN 11.7 g/dL (12.0-16.0); LYMPHOCYTES # (AUTO) 0.7 K/uL (1.0-5.5); LYMPHOCYTES % (AUTO) 5.8 % (20.5-51.5); MEAN CORPUSCULAR HEMOGLOBIN 27 pg (27-31); MEAN CORPUSCULAR HGB CONC 32 % (32-36); MEAN CORPUSCULAR VOLUME 83 fL (79.0-98.0); MONOCYTES # (AUTO) 0.2 K/uL (0.0-1.0); MONOCYTES % (AUTO) 2.1 % (1.7-9.3); NEUTROPHILS # (AUTO) 10.4 K/uL (1.8-7.7); NEUTROPHILS % (AUTO) 92.1 % (40.0-70.0); PLATELET COUNT (AUTO) 260 K/uL (130-430); RED BLOOD CELL COUNT(AUTO) 4.37 MIL/uL (4.2-6.2); RED CELL DISTRIBUTION WIDTH 14.4 % (9.0-15.0); WHITE BLOOD COUNT (AUTO) 11.3 K/uL (4.8-10.8)
[2021-10-06 07:20] LABS: ALANINE AMINOTRANSFERASE 10 U/L (12-78); ALBUMIN 2.3 g/dL (3.4-4.8); ANION GAP 4 (5-15); ASPARTATE AMINOTRANSFERASE 10 U/L (10-37); CALCIUM 8.5 mg/dL (8.4-11.0); CHLORIDE 102 mmol/L (98-107); CREATININE 0.95 mg/dL (0.55-1.30); GLUCOSE 162 mg/dL (70-99); POTASSIUM 4.2 mmol/L (3.5-5.1); SODIUM SERUM 136 mmol/L (136-145); TOTAL BILIRUBIN 0.2 mg/dL (0.0-1.0); UREA NITROGEN, BLOOD 34 mg/dL (8-21)
[2021-10-06] MEDS: NACL 0.9% 1,000 ML IV SCH (07:25)
[2021-10-06] MEDS: BALSAM PERU/CASTOR OIL 56.7 GM OINT...G. TP SCH (09:00)
--- NOTE | 2021-10-06 09:00 | NUR ---
Miss Bey has been assessed as indicated. She has been successfully treated for a headache this morning. She uses the BSC without assistance. [facility] she states that she has her car here in the parking lot and will attempt to drive her self home. she is awaiting the delivery of oxygen prior to he DC. She is presently resting quietly with no s.s of distress or discomfort at this time
[2021-10-06] MEDS: FUROSEMIDE 40 MG TABLET PO SCH (09:31)
[2021-10-06] MEDS: ENOXAPARIN SODIUM 40 MG/0.4 ML SYRINGE SUBCUT SCH (09:31)
[2021-10-06] MEDS: PANTOPRAZOLE SODIUM 40 MG TAB PO SCH (09:32)
[2021-10-06] MEDS: CLOPIDOGREL BISULFATE 75 MG TABLET PO SCH (09:32)
[2021-10-06] MEDS: LOSARTAN POTASSIUM 50 MG TABLET (COZAAR) PO SCH (09:32)
[2021-10-06] MEDS: AMIODARONE HCL 200 MG TABLET PO SCH (09:33)
[2021-10-06] MEDS: EXCEDRIN EXTRA STRENGTH PO PRN (09:36)
[2021-10-06 11:35] VITALS: BP_SYST 143
--- NOTE | 2021-10-06 14:20 | NUR ---
Home O2 will be deliver to bedside today by [facility]# [id number] ETA 05-25 to bedside,
--- NOTE | 2021-10-06 14:24 | NUR ---
Discharge appointments and vendors arranged by [facility] Licensing Worker. Dr. Coronado Primary Care [facility] will call with date and time Cardiology follow up with established provider/PPL provider [facility] will call with date and time [phone] auth# [id number] Home PT & wound care Agency will call and schedule visit. [employer] [phone] auth# [id number] Home O2 will be deliver to bedside betweem 3:00-7:00PM today Please call Patient Support Center [phone] for worsening symptoms or trouble getting your medicine. For care needs when provider office is closed, contact Fransisco [facility] at [phone] or Jessica [facility] [phone].
[2021-10-06 16:06] VITALS: BP_SYST 150
[2021-10-06] MEDS ORDERED: AMIO400T5 PO (19:19)
--- NOTE | 2021-10-06 19:40 | NUR ---
Miss Bey has been DC to home. IV access was removed. DC instructions reviewed. She states that she feel more comfortable with home O2 after discussing it with the charge nurse. she will follow up with her wound care clinic with an appointment that she has on . She will have rivera [facility] [phone] Her [facility] case technician will call her with an appointment with her PCP Dr. Coronado. She was escorted to the front door by staff in a WC. New ordered meds were discussed. She stated that she had been contacted by the [facility] pharmacy, she stated that she may transfer her orders to [facility]. She stated that she would call them and try because [facility] was near her home. A hole pulse oximeter was a suggestion she was made aware that this was not a requirement for her in home oxygen needs. She was anxious to leave so that her friend that was transporting her would not have to wait a long time. She stated that she understood he DC instructions and signed a document to indicate this. She was escorted to the front door by staff in a .
--- NOTE | 2021-10-07 07:21 | NUR ---
PHYSICAL THERAPY CO-SIGN The Physical Therapy Progress Notes documented by Retail Shift Manager have been reviewed. Reviewed/Co-Signed by: Flaquito Madrid Documentation Done by: JESUS DAVIS PTA Addendum: 10/07/21 at 0721 by Flaquito Madrid PT Amended: Links added.
== END 2021-10-06 20:00 | disposition home health service (06) | DRG 871 ==
LOC: SED 16:40 → SIC 21:42 → STU 09-30 16:10
PROVIDERS: ADMIT Internal Medicine; ATTEND Preventive Medicine Preventive Medicine/Occupational Environmental Medicine
PROC: 5A0945A Assistance with Respiratory Ventilation, 24-96 Consecutive Hours, High Flow/Velocity Cannula (ICD-10-PCS; principal; 2021-09-29)
DX: A41.9 Sepsis, unspecified organism (principal); I21.4 Non-ST elevation (NSTEMI) myocardial infarction; J18.9 Pneumonia, unspecified organism; I50.23 Acute on chronic systolic (congestive) heart failure; J96.01 Acute respiratory failure with hypoxia; U07.1 COVID-19; J12.82 Pneumonia due to coronavirus disease 2019; L97.919 Non-pressure chronic ulcer of unspecified part of right lower leg with unspecified severity; I24.8 Other forms of acute ischemic heart disease; I11.0 Hypertensive heart disease with heart failure; Z20.822 Contact with and (suspected) exposure to COVID-19; J42 Unspecified chronic bronchitis; I73.9 Peripheral vascular disease, unspecified; Z79.02 Long term (current) use of antithrombotics/antiplatelets; Z86.718 Personal history of other venous thrombosis and embolism
CPT/HCPCS: 36415; 36600; 71045; 71250-TC; 71275; 76376; 80048; 80053; 80061; 81000; 82164; 82550; 82803-TC; 83605; 83880; 84443; 84484; 85025; 85379; 86038; 86256; 86800; 87040; 87081; 92610-GN; 93005; 93306; 93923; 94760; 96372; 96374; 97110-GP; 97116-GP; 97530-GP; 99285; G0378; J0456; J0696; J1030; J1100; J1650; J1940; J2930; J3490; J7050; Q9967; U0003

== ENCOUNTER 2021-11-05 14:05 | Emergency (ER) | payer OTHER, MEDICAID ==
[~2021-11-05] VITALS: Ht 160 cm; Wt 74.8 kg
[~2021-11-05 14:05] MED LIST: ALBMDI INH; AMIO400T5 PO; BUDE6HFA INH; CLOP75TA32 PO; DEXA6TAB5 PO; FAMO20TA8 PO; FURO-149 PO; LOSA50TA3 PO; ZIT250 PO
[2021-11-05 14:08] VITALS: BP_SYST 127
[2021-11-05] MEDS ORDERED: IPRATROPIUM BROM 0.5 MG/2.5 ML VIAL.NEB (ATROVENT) INH ONE (14:45)
[2021-11-05] MEDS ORDERED: ALBUTEROL SULFATE 0.083% 2.5 MG/3 ML VIAL.NEB INH ONE (14:45)
[2021-11-05 15:22] LABS: BASOPHILS # (AUTO) 0.1 K/uL (0.0-0.2); BASOPHILS % (AUTO) 0.9 % (0.0-2.0); EOSINOPHILS # (AUTO) 0.2 K/uL (0.0-0.4); HEMATOCRIT 34.8 % (36-48); HEMOGLOBIN 11.4 g/dL (12.0-16.0); LYMPHOCYTES # (AUTO) 1.5 K/uL (1.0-5.5); LYMPHOCYTES % (AUTO) 17.2 % (20.5-51.5); MEAN CORPUSCULAR HEMOGLOBIN 27 pg (27-31); MEAN CORPUSCULAR HGB CONC 33 % (32-36); MEAN CORPUSCULAR VOLUME 83 fL (79.0-98.0); MONOCYTES # (AUTO) 0.6 K/uL (0.0-1.0); MONOCYTES % (AUTO) 6.5 % (1.7-9.3); NEUTROPHILS # (AUTO) 6.2 K/uL (1.8-7.7); NEUTROPHILS % (AUTO) 73.4 % (40.0-70.0); PLATELET COUNT (AUTO) 341 K/uL (130-430); RED BLOOD CELL COUNT(AUTO) 4.21 MIL/uL (4.2-6.2); RED CELL DISTRIBUTION WIDTH 16.1 % (9.0-15.0); WHITE BLOOD COUNT (AUTO) 8.5 K/uL (4.8-10.8)
[2021-11-05 15:33] LABS: ANION GAP 8 (5-15); CALCIUM 8.8 mg/dL (8.4-11.0); CHLORIDE 108 mmol/L (98-107); CREATININE 0.95 mg/dL (0.55-1.30); GLUCOSE 96 mg/dL (70-99); POTASSIUM 4.3 mmol/L (3.5-5.1); SODIUM SERUM 142 mmol/L (136-145); UREA NITROGEN, BLOOD 11 mg/dL (8-21)
[2021-11-05 15:42] LABS: ALANINE AMINOTRANSFERASE 9 U/L (12-78); ALBUMIN 2.7 g/dL (3.4-4.8); ASPARTATE AMINOTRANSFERASE 23 U/L (10-37); TOTAL BILIRUBIN 0.2 mg/dL (0.0-1.0)
[2021-11-05] MEDS ORDERED: PRED20TA PO ×2 (16:25→16:40)
[2021-11-05 16:52] VITALS: BP_SYST 137
== END 2021-11-05 16:44 | disposition home or self-care (01) ==
LOC: SED 14:05
DX: J44.1 Chronic obstructive pulmonary disease with (acute) exacerbation (principal); K21.9 Gastro-esophageal reflux disease without esophagitis; I10 Essential (primary) hypertension; R06.02 Shortness of breath; R05.9 Cough, unspecified; Z79.899 Other long term (current) drug therapy; Z20.822 Contact with and (suspected) exposure to COVID-19
CPT/HCPCS: 80053; 83880; 85025; 84484; 36415; 93005; 71045; 94640; 99285; 83605; 87804 ×2; 87426; J7613